=== PATIENT | female | born 1960 | race Caucasian/White ===

== ENCOUNTER 2017-04-17 06:22 | Observation (INO) | payer BC ==
[~2017-04-17 06:22] MED LIST: Famotidine TAB* 20 MG PO ONE; Metoclopramide TAB* 10 MG PO ONE; Scopolamine 1.5 mg* PATCH TRANSDERM ONE; Sodium Citrate/Citric Acid* 15 ML UDC PO ONE; celeCOXIB CAP* 200 MG PO ONE
[2017-04-17] MEDS ORDERED: Metoclopramide TAB* 10 MG ONE (06:40)
[2017-04-17] MEDS ORDERED: Famotidine TAB* 20 MG ONE (06:40)
[2017-04-17] MEDS ORDERED: celeCOXIB CAP* 100 MG ONE (06:40)
[2017-04-17] MEDS ORDERED: Scopolamine 1.5 mg* PATCH ONE (06:41)
[2017-04-17] MEDS ORDERED: Sodium Citrate/Citric Acid* 15 ML UDC ONE (06:41)
[2017-04-17] MEDS ORDERED: Buffered Lidocaine 0.9% SYRIN* 5 ML/SYR SYRINGE ONE (06:41)
[2017-04-17] MEDS ORDERED: ceFAZolin 2 GM PREMIX(*) 2 GM/50 ML BAG IVPB ONE (06:41)
[2017-04-17] MEDS ORDERED: Thrombin 5,000 UNITS* 1 APPLIC KIT - topical use - TOPICAL ONE (07:14)
[2017-04-17] MEDS ORDERED: Lidocain 1% EPI 1:100,000 * 30 ML MDV ONE (07:14)
[2017-04-17] MEDS ORDERED: Bacitracin IV* 50,000 UNITS INJ ONE (07:15)
[2017-04-17] MEDS ORDERED: Atracurium* 10 MG/ML 10 ML VIAL ONE (07:31)
[2017-04-17] MEDS ORDERED: fentaNYL* 50 MCG/ML 2 ML VIAL (100 MCG VIAL) ONE ×3 (07:31→10:02)
[2017-04-17] MEDS ORDERED: Lidocaine 2% PF * 5 ML VIAL ONE (07:32)
[2017-04-17] MEDS ORDERED: Dexamethasone IV* 4 MG/ML 1 ML (4 MG) ONE (07:32)
[2017-04-17] MEDS ORDERED: Propofol* 10 MG/ML 20 ML BTL IV PUSH ONE (07:32)
[2017-04-17] MEDS ORDERED: Ondansetron INJ* 2 MG/ML VIAL ONE (07:32)
[2017-04-17] MEDS ORDERED: DiMENhydriNATE IV* 50 MG/ML VIAL IV PUSH PRN (08:26)
[2017-04-17] MEDS ORDERED: HYDROmorphone* 1 MG/ML 1 ML SYR IV PRN (08:26)
[2017-04-17] MEDS ORDERED: Ondansetron INJ* 2 MG/ML VIAL IV PRN (09:07)
[2017-04-17] MEDS ORDERED: Acetaminophen TAB* 325 MG PO PRN (09:07)
[2017-04-17] MEDS: fentaNYL* 50 MCG/ML 2 ML VIAL (100 MCG VIAL) IV PRN ×4 (09:28→10:41)
--- NOTE | 2017-04-17 12:04 | RAD ---
HISTORY: Decompressive lumbar laminectomy COMPARISONS: None relevant VIEWS: 1 , frontal crosstable lateral view of the lumbar spine performed intraoperatively at 7:18 AM FINDINGS: A single portable view of the lumbar spine performed intraoperatively for localization purposes at 7:18 AM demonstrates a metallic probe opposite of the L4 pedicle, counting from L5 as the last lumbar type vertebral body. IMPRESSION: LIMITED PORTABLE VIEW OF THE SPINE FOR LOCALIZATION DURING SPINAL SURGERY
[2017-04-17] MEDS: HYDROcodone/ACETAMIN 5-325 MG* 1 TAB PO PRN ×3 (12:14→20:24)
[2017-04-18] MEDS: HYDROcodone/ACETAMIN 5-325 MG* 1 TAB PO PRN ×6 (00:15→20:42)
--- NOTE | 2017-04-18 09:04 | PN ---
Progress Note - Progress Note SOAP: Subjective: []POD # 1 Complains of persistent left hip pain Moderate drain output Otherwise generalized incisional discomfort Objective: []Moderate drain output Neuro intact Assessment: []Slow progress Plan: []Will leave drain in for now
--- NOTE | 2017-04-19 00:17 | OP ---
AMENDED REPORT NOW INCLUDES DATE OF OPERATION - ESIGNED BEFORE ADJUSTMENT * DATE OF OPERATION: 04/17/17 - ROOM #339 DATE OF : 60 SURGEON: Leighton Arevalo MD SHOE MAKER: BRONSON Rodarte ANESTHESIOLOGIST: Richardson Leija MD ANESTHESIA: General. PRE-OP DIAGNOSIS: Lumbar spinal stenosis, L3-4, L4-5. POST-OP DIAGNOSIS: Lumbar spinal stenosis, L3-4, L4-5. OPERATIVE PROCEDURE: Decompressive lumbar laminectomy, L3-4, L4-5. DESCRIPTION OF PROCEDURE: After satisfactory general anesthesia was obtained, the patient was placed on the operating table in the prone position with the chest supported on the [place] frame and the back slightly flexed. The lumbar region was then clipped, prepped, and draped in a sterile manner and a skin incision outlined from L3 to L5. This incision was infiltrated with 1% Xylocaine with epinephrine after which it was turned down sharply to the level of the lumbar fascia. The fascia was divided along the spinous processes of L3 and L4 as well as L5 and the paraspinal musculature stripped away from these posterior elements using the periosteal elevator and monopolar cautery. An intraoperative x-ray was obtained verifying proper interspace localization after which a decompression was carried out initially at L3-4 level by removing the spinous processes of the L3 and L4 with a combination of the Alan rib shear and Leksell rongeurs. The inferior aspect of the L3 lamina and medial aspect of the facet complex was then thinned out with Midas Manohar drill and decompression carried superiorly until the attachment of ligamentum flavum was taken down. The pathology of this level was a combination of ligamentous thickening as well as bony hypertrophy. The dissection was carried out inferiorly until both L4 nerve roots were noted to be free in their course. Attention was then directed to the L4-5 level where initial dissection was done on the right side which had not been previously operated on. The patient had undergone a previous diskectomy at L4-5 on the left side. The decompression was carried out by thinning out the inferior aspect of the L4 lamina and medial facet complex initially on the right side. After doing this encountering normal dura, the dissection was carried out and extended over toward the left side. On the left side, there was noted to be some epidural scar tissue adherent to the L5 nerve root region. This ultimately was dissected free such that the nerve hook would go out readily on both sides. The wound was then thoroughly irrigated and after assuring adequate hemostasis, a drain was placed in the epidural space and tunneled out toward the left side. The fascia was then reapproximated with 0 Vicryl suture. The subcutaneous tissues closed with 3-0 Vicryl suture and the skin closed with skin clips. The estimated blood loss was less than 50 cc and the final sponge, padding, and needle counts were correct. The patient was taken to the recovery room, extubated, and in stable condition. [id number]/[facility] #: [id number] MTDD
[2017-04-19] MEDS: HYDROcodone/ACETAMIN 5-325 MG* 1 TAB PO PRN ×3 (00:45→09:09)
[2017-04-19 07:54] VITALS: BP 131/74
--- NOTE | 2017-04-19 08:49 | PN ---
Progress Note - Progress Note SOAP: Subjective: [S/p decompressive lumbar laminectomy, POD #2. Ambulating independently. Eating, drinking and voiding without difficulty. Pain well controlled. Pre-op symptoms improving. ] Objective: [ Vital Signs: Temp Pulse Resp BP Pulse Ox 98.2 F 64 16 131/74 100 04/19/17 07:40 04/19/17 07:40 04/19/17 08:00 04/19/17 07:40 04/19/17 08:00 General: Alert and oriented. No distress. Neuro: Motor and sensory intact. Incision: Intact with cathy. No infection. DENIA removed today. DENIA output 04/17/17 04/17/17 04/17/17 11:35 14:00 20:21 Output, DENIA #1 35 35 20 04/18/17 04/18/17 04/18/17 00:21 04:00 08:10 Output, DENIA #1 1 20 13 04/18/17 04/18/17 04/18/17 12:21 19:30 20:00 Output, DENIA #1 16 10 5 04/19/17 04/19/17 04/19/17 00:48 03:53 05:06 Output, DENIA #1 0 3 0 04/19/17 06:17 Output, DENIA #1 1 ] Assessment: [Satisfactory post-op course. ] Plan: [1. Discharge home today. 2. Discharge instructions discussed with the patient. ]
[2017-04-20] MEDS ORDERED: Scopolomine PATCH Remove* 1 NOTE MISC PATCH OFF ONE (06:00)
--- NOTE | 2017-05-07 04:52 | DS ---
DISCHARGE SUMMARY: DATE OF ADMISSION: 04/17/17 DATE OF DISCHARGE: 04/19/17 DISCHARGE DIAGNOSIS: Lumbar spinal stenosis, L3-4 and L4-5. SPECIAL PROCEDURES: Decompressive lumbar laminectomy, L3-4, L4-5. HOSPITAL COURSE: This 56-year-old female was seen in the office with symptomatic lumbar spinal stenosis for the previous 11 and more years. She had been treated conservatively on medications and steroid injection without improvement. She was admitted at this time for elective surgical therapy. On the day of admission, she was taken to surgery where under general anesthesia, a decompressive lumbar laminectomy at L3-4 and L4-5 operation was carried out. Postoperatively, she was feeling well. She was ambulating independently. She was eating, drinking, and voiding without difficulty. Preoperative lower extremity and low back symptoms were improving. She remained hospitalized for a second night secondary to required further monitoring of the DENIA wound drain output. On second postoperative day, the wound drain was removed and the patient was discharged home under the care of family. DISCHARGE INSTRUCTIONS: Including wound care and activity level were discussed with the patient. She will be seen in the office in approximately 7 to 10 days for followup and staple removal. DISCHARGE MEDICATIONS: None. BRONSON RIVERA [id number]/[facility] #: [id number] DIANE
== END 2017-04-19 09:20 | disposition home or self-care (01) | DRG 320 ==
LOC: OR 06:22 → SSU 11:32 → INTOOBSV 04-18 09:05 → OBSVTOIN 04-18 09:05
PROVIDERS: ADMIT Neurological Surgery; ATTEND Neurological Surgery
DX: M48.06 Spinal stenosis, lumbar region (principal); J30.2 Other seasonal allergic rhinitis; Z79.899 Other long term (current) drug therapy; Z88.2 Allergy status to sulfonamides; Z87.891 Personal history of nicotine dependence
CPT/HCPCS: 72100; A9270-GY; G0378; J0690; J1100; J2405; J2704; J3010

== ENCOUNTER 2017-07-29 07:48 | Emergency (ER) | payer BC ==
[2017-07-29 08:02] VITALS: BP 168/98
--- NOTE | 2017-07-29 08:20 | UC ---
Eye Complaint HPI - HPI Summary HPI Summary: bilateral eye redness x 2 days + clear discharge, no pain, + photophobia , blurry vision cold symptoms last week, no eye injury , no fb sensation - History of Current Complaint Chief Complaint: UCEye Stated Complaint: BILATERAL EYE COMPLAINT Time Seen by Provider: 07/29/17 07:54 Hx Obtained From: Patient ?: No Onset/Duration: Gradual Onset, Lasting Days - 2 Timing: Constant Severity Initially: Moderate Severity Currently: Moderate Location of Injury: Conjunctiva Character: Dull Aggravating Factor(s): Light Alleviating Factor(s): Nothing Associated Signs And Symptoms: Positive: Photophobia, Drainage (Clear), Vision Impairment Bilateral, Vision Impairment Right, Vision Impairment Left. Negative : Drainage (Purulent), Fever, Swelling - Allergies/Home Medications Allergies/Adverse Reactions: Allergies Allergy/AdvReac Type Severity Reaction Status Date / Time Cephalexin [From Keflex] Allergy Intermediate Hives Verified 07/29/17 08:02 Sulfa Drugs Allergy Intermediate Hives Verified 07/29/17 08:02 Home Medications: Home Medications Cetirizine HCl [Zyrtec Allergy 10 MG TAB] 10 mg PO DAILY 07/29/17 [History Confirmed 07/29/17] Gabapentin CAP(*) [Neurontin 100 mg CAP(*)] 100 mg PO BID 07/29/17 [History Confirmed 07/29/17] Gabapentin CAP(*) [Neurontin 300 CAP(*)] 300 mg PO BEDTIME 07/29/17 [History Confirmed 07/29/17] PMH/Surg Hx/FS Hx/Imm Hx - Additional Past Medical History Additional PMH: spinal stenosis - Surgical History Surgical History: Yes Surgery Procedure, Year, and Place: S1-L5 back surgery 2005, sinus surgery 2009. ROTATOR CUFF REPAIR LEFT SHOULDER 2013. SURGERY A CHILD ON EYES [facility]. RIGHT BREAST CLIP FROM BIOPSY 2013. 2 C-sections; 04/17/2017 L3-L4 decompression, L5 scraping - Family History Known Family History: Negative: Diabetes - Social History Alcohol Use: Occasionally Alcohol Amount: 1-2 drinks once a week. Substance Use Type: None Smoking Status (MU): Current Every Day Smoker Type: eCigarettes Amount Used/How Often: electronic cigarette low dose nicotine Have You Smoked in the Last Year: Yes When Did the Patient Quit Smoking/Using Tobacco: quit smoking actual cigarettes 10 yrs ago - Immunization History Most Recent Influenza Vaccination: unknown Most Recent Pneumonia Vaccination: has had in past 4 years Review of Systems Constitutional: Negative Skin: Negative Eyes: Blurred Vision, Drainage, Eye Redness ENT: Negative Respiratory: Negative Cardiovascular: Negative All Other Systems Reviewed And Are Negative: Yes Physical Exam Triage Information Reviewed: Yes Appearance: Well-Appearing, No Pain Distress, Well-Nourished Vital Signs: Initial Vital Signs Temp 98.4 F 07/29/17 07:52 Pulse 77 07/29/17 07:52 Resp 18 07/29/17 07:52 BP 168/98 07/29/17 07:52 Vital Signs Reviewed: Yes Eyes: Positive: Conjunctiva Inflamed - bilateral, Discharge - clear discharge ENT Exam: Normal ENT: Positive: Normal ENT inspection, Hearing grossly normal Dental Exam: Normal Dental: Positive: Percussion Tenderness @ Neck: Positive: Supple Respiratory: Positive: Chest non-tender, Lungs clear, Normal breath sounds Cardiovascular: Positive: RRR, No Murmur, Pulses Normal Abdominal Exam: Normal Skin Exam: Normal Eye Complaint Course/Dx - Course Course Of Treatment: follow up with your pcp for your elevated bp - Differential Dx/Diagnosis Provider Diagnoses: conjunctivitis. elevated bp Discharge - Discharge Plan Condition: Stable Disposition: HOME Prescriptions: Tobramycin/Dexameth OPTH.SUSP* [Tobradex 0.3-0.1%*] 1 drop BOTH EYES Q4H #1 btl Patient Education Materials: Conjunctivitis (ED) Referrals: Patti Sharp MD [Primary Care Provider] - If Needed
== END 2017-07-29 08:22 | disposition home or self-care (01) ==
LOC: UCCORT 07:48
DX: H10.33 Unspecified acute conjunctivitis, bilateral (principal); R03.0 Elevated blood-pressure reading, without diagnosis of hypertension; Z88.1 Allergy status to other antibiotic agents; Z88.2 Allergy status to sulfonamides; F17.210 Nicotine dependence, cigarettes, uncomplicated
CPT/HCPCS: 99212; G0463

== ENCOUNTER 2017-08-19 10:54 | Emergency (ER) | payer BC ==
--- NOTE | 2017-08-19 11:12 | UC ---
Eye Complaint HPI - HPI Summary HPI Summary: 57 YEAR OLD FEMALE PRESENTS WITH COMPLAINS OF BILATERAL EYE REDNESS/DRAINAGE/ ITCHINESS. - History of Current Complaint Stated Complaint: EYE COMPLAINT Time Seen by Provider: 08/19/17 11:12 Hx Obtained From: Patient Onset/Duration: Sudden Onset Timing: Constant Severity Initially: Moderate Severity Currently: Moderate Pain Scale Used: 0-10 Numeric - 5 - Allergies/Home Medications Allergies/Adverse Reactions: Allergies Allergy/AdvReac Type Severity Reaction Status Date / Time Cephalexin [From Keflex] Allergy Intermediate Hives Verified 08/19/17 11:16 Sulfa Drugs Allergy Intermediate Hives Verified 08/19/17 11:16 Home Medications: Home Medications Ketotifen Fumarate (Ophth) [Allergy Eye Drops] 0.025 % OP DAILY 08/19/17 [ History Confirmed 08/19/17] Polyvinyl Alcohol-Povidone (Op [Clear Eyes All Seasons Ou 5-6 mg/ml] 1 anusha OP DAILY 08/19/17 [History Confirmed 08/19/17] PMH/Surg Hx/FS Hx/Imm Hx Previously Healthy: Yes - Surgical History Surgical History: Yes Surgery Procedure, Year, and Place: S1-L5 back surgery 2005, sinus surgery 2009. ROTATOR CUFF REPAIR LEFT SHOULDER 2013. SURGERY A CHILD ON EYES FOR [facility] EYE. RIGHT BREAST CLIP FROM BIOPSY 2013. 2 C-sections; 04/17/2017 L3-L4 decompression, L5 scraping - Family History Known Family History: Negative: Diabetes - Social History Alcohol Use: Occasionally Alcohol Amount: 1-2 drinks once a week. Substance Use Type: None Smoking Status (MU): Current Every Day Smoker Type: eCigarettstuart Amount Used/How Often: electronic cigarette low dose nicotine Have You Smoked in the Last Year: Yes When Did the Patient Quit Smoking/Using Tobacco: quit smoking actual cigarettes 10 yrs ago - Immunization History Most Recent Influenza Vaccination: unknown Most Recent Pneumonia Vaccination: has had in past 4 years Review of Systems Constitutional: Negative Skin: Negative Eyes: Drainage, Eye Redness ENT: Negative Respiratory: Negative Cardiovascular: Negative Gastrointestinal: Negative Genitourinary: Negative Motor: Negative Neurovascular: Negative Musculoskeletal: Negative Neurological: Negative Psychological: Negative All Other Systems Reviewed And Are Negative: Yes Physical Exam Triage Information Reviewed: Yes Eyes: Positive: Conjunctiva Inflamed, Discharge ENT Exam: Normal Dental Exam: Normal Neck exam: Normal Neck: Positive: 1 Respiratory Exam: Normal Cardiovascular Exam: Normal Abdominal Exam: Normal Musculoskeletal Exam: Normal Neurological Exam: Normal Psychological Exam: Normal Skin Exam: Normal Eye Complaint Course/Dx - Differential Dx/Diagnosis Provider Diagnoses: ALLERGIC CONJUNCTIVITIS Discharge - Discharge Plan Condition: Stable Disposition: HOME Prescriptions: Azithromyxin CHANDLER (NF) [Z-Chandler (Zithromax) 250 mg tabs #6] 2 tab PO .TODAY, THEN 1 DAILY #6 tab Methylprednisolone [Medrol Dosepak 4 MG*] 4 mg PO .SEE CHANDLER INSTRUCTION #21 tab Olopatadine 0.1% OPHTH (NF) [Patanol 0.1% OPHTH (NF)] 1 drop BOTH EYES Q8H PRN # 1 btl PRN Reason: Itching Patient Education Materials: Allergic Rhinitis (ED), Conjunctivitis (ED) Referrals: Fabio Mosley MD [Medical Doctor] - Patti Sharp MD [Primary Care Provider] -
[2017-08-19 11:16] VITALS: BP 149/87
== END 2017-08-19 11:37 | disposition home or self-care (01) ==
LOC: UCCORT 10:54
DX: H10.10 Acute atopic conjunctivitis, unspecified eye (principal); Z88.2 Allergy status to sulfonamides; F17.210 Nicotine dependence, cigarettes, uncomplicated
CPT/HCPCS: 99212; G0463